=== PATIENT | male | born 1980 | race Caucasian/White ===

== ENCOUNTER → 2019-04-12 | Outpatient (CLI) | payer BC ==
--- NOTE | 2019-04-12 19:18 | REP ---
Left elbow series: Four views. History: Epicondylitis. Findings: Four views of the left elbow demonstrate a subtle small fragmented olecranon process spur posteriorly. There is no evidence of joint effusion. No acute fracture is seen. Impression: Mild olecranon process spurring. No acute bony abnormality. Electronically Signed by Collins Cross MD 04/13/2019 05:38 A
== END ==
LOC: M WUC 15:14
PROVIDERS: ATTEND Internal Medicine
DX: M77.12 Lateral epicondylitis, left elbow (principal)

== ENCOUNTER → 2023-11-07 | Outpatient (CLI) | payer BC | LOC: M WUC 13:17 | PROVIDERS: ATTEND Physician Assistant | DX: R20.2 Paresthesia of skin (principal); M54.32 Sciatica, left side; M16.12 Unilateral primary osteoarthritis, left hip ==

== ENCOUNTER → 2023-12-12 | Outpatient (REF) | payer BC | LOC: M LAB REF 16:19 | PROVIDERS: ATTEND Obstetrics & Gynecology | DX: L73.1 Pseudofolliculitis barbae (principal) ==

== ENCOUNTER → 2024-03-06 | Outpatient (CLI) | payer BC | LOC: M RAD 15:58 | PROVIDERS: ATTEND Physician Assistant | DX: M54.50 Low back pain, unspecified (principal); M47.896 Other spondylosis, lumbar region; S34 Injury of lumbar and sacral spinal cord and nerves at abdomen, lower back and pelvis level; Y93.9 Activity, unspecified; Y92.9 Unspecified place or not applicable ==

== ENCOUNTER → 2024-03-13 | Outpatient (CLI) | payer BC ==
[~2024-03-13] MED LIST: ALPR1TAB3 PO; MELO15TA28 PO; SUMA100T2 PO; TESTOPEL; TIRZ5PEN3 SC
[2024-03-13 18:28] LABS: BASO % 0.7 % (0.0-1.0); EOS % 0.7 % (0.0-3.0); HEMATOCRIT 54.5 % (42.0-52.0); HEMOGLOBIN 18.7 g/dl (13.5-17.5); LYMPH # 2.2 10^3/uL (1.5-5.0); LYMPH % 35.5 % (24.0-44.0); MEAN CORPUSCULAR HGB CONC 34.3 g/dl (32.0-36.5); MEAN CORPUSCULAR VOLUME 87.5 fl (80.0-96.0); MONO # 0.4 10^3/uL (0.0-0.8); MONO % 6.5 % (2.0-8.0); NEUTROPHILS # 3.5 10^3/uL (1.5-8.5); NEUTROPHILS % 56.4 % (36.0-66.0); PLATELET COUNT, AUTOMATED 124 10^3/uL (150-450); RED BLOOD COUNT 6.23 10^6/uL (4.30-6.10); WHITE BLOOD COUNT 6.1 10^3/uL (4.0-10.0)
[2024-03-13 19:26] LABS: HIV 1&2 SCREEN NEGATIVE (NEGATIVE)
[2024-03-13 19:34] LABS: HEPATITIS C VIRUS ABY INDEX < 0.02 INDEX (<0.8)
[2024-03-15 14:03] LABS: ERYTHROPOIETIN 7.2 mIU/mL (2.6-18.5)
[2024-03-19 17:26] LABS: TESTOSTERONE FREE (DIRECT) 107.7 pg/mL (35.0-155.0); TESTOSTERONE TOTAL FOR T&D 570 ng/dL (250-1100)
[2024-03-20 07:15] LABS: JAK2 MUTATIONS FOR PATH SENDOU See Pathology Report
== END ==
LOC: M PLALAB 14:49
PROVIDERS: ATTEND Internal Medicine Hematology
DX: D69.6 Thrombocytopenia, unspecified (principal); D75.1 Secondary polycythemia

== ENCOUNTER → 2024-03-29 | Outpatient (CLI) | payer BC ==
[2024-03-29 15:43] LABS: HEMATOCRIT 51.4 % (42.0-52.0); HEMOGLOBIN 17.8 g/dl (13.5-17.5); MEAN CORPUSCULAR HEMOGLOBIN 29.5 pg (27.0-33.0); MEAN CORPUSCULAR HGB CONC 34.6 g/dl (32.0-36.5); MEAN CORPUSCULAR VOLUME 85.1 fl (80.0-96.0); PLATELET COUNT, AUTOMATED 127 10^3/uL (150-450); RED BLOOD COUNT 6.04 10^6/uL (4.30-6.10); WHITE BLOOD COUNT 7.1 10^3/uL (4.0-10.0)
[2024-03-29 16:05] LABS: BLOOD UREA NITROGEN 22 MG/DL (9-23); CALCIUM LEVEL 9.1 MG/DL (8.5-10.1); CARBON DIOXIDE LEVEL 26 MMOL/L (20-31); CHLORIDE LEVEL 109 MMOL/L (98-107); CREATININE FOR GFR 1.14 MG/DL (0.70-1.30); GLOMERULAR FILTRATION RATE > 60.0 (>60); GLUCOSE, FASTING 57 MG/DL (60-100); POTASSIUM SERUM 4.5 MMOL/L (3.5-5.1); SODIUM LEVEL 141 MMOL/L (136-145)
== END ==
LOC: M RAD 14:16
PROVIDERS: ATTEND Nurse Practitioner Family
DX: Z01.818 Encounter for other preprocedural examination (principal)

== ENCOUNTER 2024-04-10 11:01 | Day surgery (SDC) | payer BC ==
[~2024-04-10] VITALS: Ht 177.8 cm; Wt 84.5 kg
[2024-04-10] MEDS ORDERED: NS (Normal Saline) 0.9% 1,000 ML IV SCH (11:10)
[2024-04-10] MEDS: ceFAZolin SOD 2 GM in IV 1 EA IV ONE (12:13)
[2024-04-10] MEDS ORDERED: MIDAZOLAM INJ 2MG/2ML VIAL As Ordered ONE (12:20)
[2024-04-10] MEDS ORDERED: propofoL 200 MG/20 ML VIAL As Ordered ONE (12:20)
[2024-04-10] MEDS ORDERED: METOCLOPRAMIDE INJ 10MG/2ML VIAL As Ordered ONE (12:20)
[2024-04-10] MEDS ORDERED: ACETAMINOPHEN 1000MG/100ML IV BAG As Ordered ONE (12:20)
[2024-04-10] MEDS ORDERED: ROCURONIUM BROMIDE 50MG/5ML VIAL As Ordered ONE (12:20)
[2024-04-10] MEDS ORDERED: LIDOCAINE 2% 100MG/5ML SDV (FOR ANES.) As Ordered ONE (12:20)
[2024-04-10] MEDS ORDERED: fentaNYL 100 MCG/2 ML INJECTION As Ordered ONE (12:20)
[2024-04-10] MEDS ORDERED: SUGAMMADEX SODIUM 500 MG/5 ML VIAL (BRIDION) As Ordered ONE (12:20)
[2024-04-10] MEDS ORDERED: ONDANSETRON 4MG 2ML VIAL As Ordered ONE (12:20)
[2024-04-10] MEDS ORDERED: KETOROLAC 60MG 2ML VIAL As Ordered ONE (12:28)
[2024-04-10] MEDS: BACITRACIN OINTMENT 30GM TUBE As Ordered ONE (12:55)
[2024-04-10] MEDS ORDERED: fentaNYL 100 MCG/2 ML INJECTION IV PRN (12:55)
[2024-04-10] MEDS ORDERED: MEPERIDINE 25 MG/ML 1ML VIAL IV PRN (12:55)
[2024-04-10] MEDS ORDERED: ONDANSETRON 4MG 2ML VIAL IV PRN (12:55)
[2024-04-10] MEDS ORDERED: oxyCODONE 5MG TAB PO PRN (12:55)
[2024-04-10] MEDS ORDERED: PERCOCET 5MG/325MG TAB PO PRN (13:25)
[2024-04-10] MEDS ORDERED: PERCOCET PO (13:26)
[2024-04-10] MEDS ORDERED: CEPH500C PO (13:26)
[2024-04-10 14:30] VITALS: BP 129/78; TEMP 97.3; O2SAT 99
== END 2024-04-10 14:44 | disposition home or self-care (01) ==
LOC: M SDC 11:01
PROVIDERS: ATTEND Urology
DX: Q55.22 Retractile testis (principal); Z98.52 Vasectomy status; E78.00 Pure hypercholesterolemia, unspecified; J45.909 Unspecified asthma, uncomplicated; Z79.899 Other long term (current) drug therapy; G43.909 Migraine, unspecified, not intractable, without status migrainosus; Z79.1 Long term (current) use of non-steroidal anti-inflammatories (NSAID)
CPT/HCPCS: 54640; J0131; J0665; J0690; J1100; J1885; J2250; J2405; J2765; J3010

== ENCOUNTER → 2024-06-20 | Outpatient (CLI) | payer BC ==
[~2024-06-20] MED LIST changes: +CEPH500C PO; +PERCOCET PO
== END ==
LOC: M PLARAD 08:57
PROVIDERS: ATTEND Physician Assistant
DX: M54.50 Low back pain, unspecified (principal); M16.0 Bilateral primary osteoarthritis of hip

== ENCOUNTER 2024-11-14 07:03 | Day surgery (SDC) | payer BC ==
[~2024-11-14] VITALS: Ht 177.8 cm; Wt 83.7 kg
[~2024-11-14 07:03] MED LIST changes: +BUSP5TA PO
[2024-11-14 08:30] VITALS: TEMP 97
[2024-11-14 08:45] VITALS: BP 120/77; O2SAT 100
== END 2024-11-14 08:57 | disposition home or self-care (01) ==
LOC: M OPP 07:03
PROVIDERS: ATTEND Surgery
DX: D12.6 Benign neoplasm of colon, unspecified (principal); K64.2 Third degree hemorrhoids; K62.89 Other specified diseases of anus and rectum; Z79.85 Long-term (current) use of injectable non-insulin antidiabetic drugs; Z79.899 Other long term (current) drug therapy